=== PATIENT | male | born 1970 | race Two or more races ===

== ENCOUNTER 2018-07-10 12:02 | Emergency (ER) | payer OTHER ==
[~2018-07-10] VITALS: Ht 170.2 cm; Wt 76.0 kg
[2018-07-10] MEDS ORDERED: IBUPROFEN 600MG TABLET PO ONE (13:30)
[2018-07-10] MEDS ORDERED: BACITRACIN ZINC OINT UDPKT TOP ONE ×2 (13:30→13:40)
[2018-07-10] MEDS ORDERED: IBUPROFEN 600MG TABLET ONE (13:41)
[2018-07-10] MEDS ORDERED: HYDROCODONE/ACETAMINOPHEN 5/325MG TABLET PO ONE (14:45)
[2018-07-10 16:22] VITALS: BP 144/82
== END 2018-07-10 16:23 | disposition home or self-care (01) ==
LOC: ER 12:02
DX: S51.011A Laceration without foreign body of right elbow, initial encounter (principal); R07.89 Other chest pain; M25.521 Pain in right elbow; V03.90XA Pedestrian on foot injured in collision with car, pick-up truck or van, unspecified whether traffic or nontraffic accident, initial encounter; Y93.01 Activity, walking, marching and hiking; Y92.9 Unspecified place or not applicable
CPT/HCPCS: 71045; 71250; 73070; 93005; 99284; A4565